=== PATIENT | male | born 2000 | race Caucasian/White ===

== ENCOUNTER 2023-04-02 08:57 | Emergency (ER) | payer OTHER ==
[~2023-04-02] VITALS: Ht 175.3 cm; Wt 79.5 kg
[2023-04-02 08:59] VITALS: BP 146/93; PULSE 102; RESP 18; TEMP 98
[2023-04-02 09:57] LABS: COVID AG,FIA SOURCE NASAL SWAB
[2023-04-02 10:13] LABS: RAPID GROUP A STREP NEGATIVE (NEGATIVE)
[2023-04-02 10:19] LABS: SARS-COV2 (COVID) ANTIGEN,FIA Negative (Negative)
[2023-04-02 10:20] LABS: INFLUENZA TYPE A NEGATIVE FOR TYPE A (NEGATIVE); INFLUENZA TYPE B NEGATIVE FOR TYPE B (NEGATIVE)
== END 2023-04-02 11:05 | disposition home or self-care (01) ==
LOC: EMS 09:02
DX: J06.9 Acute upper respiratory infection, unspecified (principal); Z20.822 Contact with and (suspected) exposure to COVID-19
CPT/HCPCS: 87430; 87804; 99283

== ENCOUNTER 2024-11-14 08:27 | Emergency (ER) | payer OTHER ==
[~2024-11-14] VITALS: Ht 175.3 cm; Wt 88.0 kg
[2024-11-14 08:35] VITALS: BP 134/76; PULSE 64; RESP 16; TEMP 97.9; O2SAT 99
[2024-11-14] MEDS: KETOROLAC TROMETHAMINE 30 MG/ML VIAL IM ONE (09:06)
== END 2024-11-14 09:58 | disposition home or self-care (01) ==
LOC: EMS 08:31
DX: S46.002A Unspecified injury of muscle(s) and tendon(s) of the rotator cuff of left shoulder, initial encounter (principal); V00.131A Fall from skateboard, initial encounter; Y93.89 Activity, other specified; Y92.89 Other specified places as the place of occurrence of the external cause; Y99.8 Other external cause status
CPT/HCPCS: 99283; 73030; 96372; J1885

== ENCOUNTER 2025-02-22 20:32 | Emergency (ER) | payer SELFPAY ==
[~2025-02-22] VITALS: Ht 175.3 cm; Wt 95.0 kg
[2025-02-22 21:00] VITALS: BP 121/68; PULSE 73; RESP 16; TEMP 98.4; O2SAT 98
[2025-02-23] MEDS ORDERED: DOXY-354 PO (02:58)
== END 2025-02-23 03:11 | disposition home or self-care (01) ==
LOC: EMS 20:32
DX: L05.01 Pilonidal cyst with abscess (principal)
CPT/HCPCS: 99283; Z7502